=== PATIENT | male | born 1960 | race African-American/Black ===

== ENCOUNTER 2022-01-19 17:01 | Emergency (ER) | payer OTHER, MEDICARE ==
[~2022-01-19] VITALS: Ht 182.9 cm; Wt 120.0 kg
[2022-01-19 19:24] VITALS: BP 122/78
== END 2022-01-19 22:01 | disposition home or self-care (01) | DRG 552 ==
LOC: ED 17:01
DX: M54.9 Dorsalgia, unspecified (principal); V49.40XA Driver injured in collision with unspecified motor vehicles in traffic accident, initial encounter; I10 Essential (primary) hypertension